=== PATIENT | female | born 1995 | race Caucasian/White ===

== ENCOUNTER 2022-08-03 22:02 | Day surgery (SDC) | payer OTHER, SELFPAY ==
[2022-08-03 22:36] VITALS: BMI 35.2
[2022-08-03] MEDS ORDERED: hydrALAZINE 20 MG/ML VIAL SLOW IVP PRN (22:58)
[2022-08-03 23:38] LABS: Bilirubin Neg (Negative); Blood, Urine 150 (Negative); Clarity Clear (Clear); Glucose, Urine (Dipstick) 250 mg/dL (Negative); Ketone, Urine Negative (Negative); Leukocyte 100 (Negative); Nitrite Negative (Negative); Protein, Urine (Dipstick) 15 mg/dl (Neg-Trace); Urobilinogen Normal mg/dL (Less than 2)
[2022-08-03 23:44] LABS: Bacteria/HPF 2+ HPF (None Seen)
[2022-08-03] MEDS ORDERED: Cephalexin 500 MG CAP PO SCH (23:59)
== END 2022-08-04 00:20 | disposition home or self-care (01) ==
LOC: CSHLD/OP 22:02
PROVIDERS: ATTEND Student in an Organized Health Care Education/Training Program
DX: O99.891 Other specified diseases and conditions complicating pregnancy (principal); M54.9 Dorsalgia, unspecified; Z3A.32 32 weeks gestation of pregnancy
CPT/HCPCS: 81003; 81015; 87086

== ENCOUNTER 2022-09-21 12:29 | Inpatient (IN) | payer BC ==
[~2022-09-21 12:29] MED LIST: Bupivacaine 0.25% HCL 30 ML VIAL ONE
[2022-09-21] MEDS: Lactated Ringer's 1,000 ML IV SCH (21:05)
[2022-09-21 21:11] VITALS: BMI 36.0
[2022-09-21] MEDS ORDERED: Methylergonovine 0.2 MG/ML VIAL IM PRN (21:22)
[2022-09-21] MEDS ORDERED: Misoprostol 200 MCG TAB PR PRN (21:22)
[2022-09-21] MEDS ORDERED: Diphenoxylate HCl/Atropine Tablet PO PRN (21:22)
[2022-09-21] MEDS ORDERED: Ibuprofen 800 MG TAB PO PRN (21:22)
[2022-09-21] MEDS ORDERED: Promethazine HCl 25 MG/ML VIAL IM PRN (21:22)
[2022-09-21] MEDS ORDERED: Lidocaine 1% (PF) 30 ML VIAL SC PRN (21:22)
[2022-09-21] MEDS ORDERED: Ondansetron PF 4 MG/2 ML Vial IVP PRN (21:22)
[2022-09-21] MEDS ORDERED: Carboprost 250 MCG/ML AMP IM PRN (21:22)
[2022-09-21] MEDS ORDERED: hydrALAZINE 20 MG/ML VIAL SLOW IVP PRN (21:22)
[2022-09-21] MEDS ORDERED: HYDROcodone/Acetaminophen 5/325 mg Tablet PO PRN (21:22)
[2022-09-21] MEDS ORDERED: Tranexamic Acid 1,000 MG/10 ML VIAL IVP PRN (21:22)
[2022-09-21] MEDS ORDERED: Acetaminophen 500 MG TAB PO PRN (21:22)
[2022-09-21] MEDS ORDERED: Misoprostol 100 MCG TAB ONE (21:44)
[2022-09-21 21:58] LABS: Hemoglobin 10.5 g/dL (12.0-15.5); Mean Corpuscular HGB CONC 32.7 g/dL (32.0-36.0); Mean Corpuscular Hemoglobin 26.3 pg (27.0-33.0); Mean Corpuscular Volume 80.5 fl (81.6-98.3); Mean Platelet Volume 11.6 fl (7.4-10.4); Platelet Count 156 10x3/uL (150-450); RBC Distribution Width 13.5 % (11.5-14.5); Red Blood Cell (RBC) Count 3.99 10x6/uL (3.90-5.03)
[2022-09-21] MEDS ORDERED: NS w/ Oxytocin 30 units 500 ML IV SCH ×2 (22:00)
[2022-09-22 00:34] LABS: HBSAg Index 0.14 S/CO (0-0.99); Hep B Surf Ag - L&D Non-Reactive S/CO (NonReactive)
[2022-09-22 00:35] LABS: Syphilis Antibody Nonreactive (Nonreactive); Syphilis Antibody Index 0.05 S/CO (<1.00 Non-Reactive)
[2022-09-22] MEDS: Lactated Ringer's 1,000 ML IV SCH ×2 (01:16→09:45)
[2022-09-22] MEDS: Fentanyl 100 MCG/2 ML VIAL SLOW IVP PRN ×2 (01:21→04:28)
[2022-09-22] MEDS ORDERED: Misoprostol 100 MCG TAB PO PRN (03:36)
[2022-09-22] MEDS ORDERED: Fentanyl 2 mcg/Bup 0.1% Cadd 100 ML ONE (06:14)
[2022-09-22] MEDS ORDERED: Ondansetron PF 4 MG/2 ML Vial IVP PRN ×2 (07:32→18:15)
[2022-09-22] MEDS ORDERED: ePHEDrine Sulfate 50 MG/10 ML VIAL SLOW IVP PRN (07:32)
[2022-09-22] MEDS ORDERED: Acetaminophen 325 MG TAB PO PRN (07:32)
[2022-09-22] MEDS ORDERED: Promethazine HCl 25 MG/ML VIAL IM PRN (07:32)
[2022-09-22] MEDS ORDERED: Lactated Ringer's 500 ML IV PRN (07:32)
[2022-09-22] MEDS ORDERED: Naloxone HCl 0.4 mg/ml Vial IVP PRN ×2 (07:32)
[2022-09-22] MEDS ORDERED: Moisturizing Cream (Eucerin) 113 GM JAR TOP PRN (07:32)
[2022-09-22] MEDS ORDERED: diphenhydrAMINE 50 MG/ML VIAL IVP PRN (07:32)
[2022-09-22] MEDS ORDERED: Communication Order-Pharmacy FS SCH (07:45)
[2022-09-22] MEDS ORDERED: Fentanyl 2 mcg/Bupivacaine 0.1% Cassette 100 ML EPIDURAL SCH (07:45)
[2022-09-22] MEDS ORDERED: Ferrous Sulfate 325 MG TAB PO SCH ×2 (17:00→19:00)
[2022-09-22] MEDS ORDERED: diphenhydrAMINE 25 MG CAP PO PRN (18:15)
[2022-09-22] MEDS ORDERED: Milk Of Magnesia 30 ML UDCUP PO PRN (18:15)
[2022-09-22] MEDS ORDERED: Bisacodyl 10 MG SUPP PR PRN (18:15)
[2022-09-22] MEDS ORDERED: Lanolin Ointment 7 GM TUBE TOP PRN (18:15)
[2022-09-22] MEDS ORDERED: hydrALAZINE 20 MG/ML VIAL SLOW IVP PRN (18:15)
[2022-09-22] MEDS ORDERED: Boostrix 0.5 ML (Tdap) VIAL (>/=7 yrs of age) IM ONE (18:15)
[2022-09-22] MEDS: Docusate 100 MG CAP PO SCH (22:09)
[2022-09-22] MEDS: Ibuprofen 800 MG TAB PO SCH (22:10)
[2022-09-22] MEDS: Benzocaine-Menthol 82.5 ML CAN TOP PRN (22:15)
[2022-09-22] MEDS: HYDROcodone/Acetaminophen 5/325 mg Tablet PO PRN (23:27)
[2022-09-23] MEDS: HYDROcodone/Acetaminophen 5/325 mg Tablet PO PRN ×2 (03:58→23:58)
[2022-09-23] MEDS: Ibuprofen 800 MG TAB PO SCH ×3 (06:25→22:20)
[2022-09-23] MEDS: Ferrous Sulfate 325 MG TAB PO SCH ×2 (08:21→16:12)
[2022-09-23] MEDS: Misoprostol 100 MCG TAB VAG SCH ×2 (08:21→08:23)
[2022-09-23] MEDS: Docusate 100 MG CAP PO SCH ×2 (08:41→22:19)
[2022-09-23] MEDS: Prenatal Vitamin 1 TAB PO SCH (08:42)
[2022-09-23] MEDS: Preparation H Ointment 28 GM TUBE PR PRN (13:53)
[2022-09-24] MEDS: HYDROcodone/Acetaminophen 5/325 mg Tablet PO PRN ×2 (04:24→13:52)
[2022-09-24] MEDS: Ibuprofen 800 MG TAB PO SCH ×2 (05:52→13:51)
[2022-09-24 07:19] VITALS: BP 107/58; TEMP 97.8
[2022-09-24] MEDS: Ferrous Sulfate 325 MG TAB PO SCH (09:20)
[2022-09-24] MEDS: Docusate 100 MG CAP PO SCH (09:20)
[2022-09-24] MEDS: Preparation H Ointment 28 GM TUBE PR PRN (09:21)
[2022-09-24] MEDS: Benzocaine-Menthol 82.5 ML CAN TOP PRN (09:21)
[2022-09-24] MEDS: Prenatal Vitamin 1 TAB PO SCH (09:23)
== END 2022-09-24 17:43 | disposition home or self-care (01) | DRG 807 ==
LOC: CSHLD 20:04 → CSHPP 09-22 18:47
PROVIDERS: ADMIT Student in an Organized Health Care Education/Training Program; ATTEND Student in an Organized Health Care Education/Training Program
PROC: 10E0XZZ Delivery of Products of Conception, External Approach (ICD-10-PCS; principal; 2022-09-22)
PROC: 3E0P7VZ Introduction of Hormone into Female Reproductive, Via Natural or Artificial Opening (ICD-10-PCS; 2022-09-22)
PROC: 10H07YZ Insertion of Other Device into Products of Conception, Via Natural or Artificial Opening (ICD-10-PCS; 2022-09-22)
DX: O42.02 Full-term premature rupture of membranes, onset of labor within 24 hours of rupture (principal); Z37.0 Single live birth; Z3A.39 39 weeks gestation of pregnancy
CPT/HCPCS: 36415; 51702; 85027; 86780; 86850; 86900; 86901; 87340; J2405; J2590; J3010; J7120; S0020